=== PATIENT | female | born 1980 | race Caucasian/White ===

== ENCOUNTER 2022-04-14 08:42 | Emergency (ER) | payer OTHER, SELFPAY ==
[2022-04-14] VITALS (7 sets, daily range): BP systolic 173–189; BP diastolic 100–113; PULSE 35–72; RESP 12–18; TEMP 36.6–36.7; O2SAT 97–100; BMI 30.1
--- NOTE | 2022-04-14 09:30 | ED_ITS ---
HPI - Chest Pain General Time Seen by Provider: 09:29 Date Seen: 04/14/22 Chief Complaint: Chest Pain Stated Complaint: Chest Pain Time Seen by Provider: 04/14/22 08:58 History of Present Illness HPI narrative: This 41-year-old female comes in reporting left upper anterior chest discomfort just left of the sternum over the past 3 days. She states that this discomfort and pain is rather constant and can be reproduced at times with certain movements. She does not report any exercise intolerance. She does not have any nausea, vomiting, shortness of breath, or diaphoresis. She states that she feels lightheaded at times. She does not report any injury event or strenuous activity recently. She does have some cardiac risk factors including smoking and hypertension. Related Data Previous Rx's Medication Instructions Recorded ketorolac 10 mg tablet 10 mg PO TID 5 Days #15 tab 04/14/22 Allergies Allergy/AdvReac Type Severity Reaction Status Date / Time No Known Drug Allergies Allergy Verified 04/14/22 08:59 Review of Systems Status of ROS Reports: 10 or more systems reviewed and unremarkable except as noted in History and below Narrative Constitutional: No fevers, no weight gain or loss. Eyes: No discharge. No vision changes. HENT: No congestion, no sore throat, no ear pain. Cardiovascular: No palpitations. Chest discomfort as described above. Respiratory: No shortness of breath, no wheezes, no cough. Gastrointestinal: No abdominal pain, no vomiting, no diarrhea. Genitourinary: No dysuria, no hematuria. Musculoskeletal: Normal range of motion. Skin: No rashes, no pruritis. Neurological: No dizziness, weakness, sensory change, speech change. Endo/Heme/Allergies: No bruising or bleeding. No polydipsia. Pysch: no suicidality, no anxiety, no insomnia. All other systems reviewed and are negative. [facility] Surgical History History of delivery Social History Smoking Status: Current every day smoker What tobacco products do you use: cigarettes Smoking packs per day: 1 Smoking cigarettes per day: 20.0 Years smoked: 3 Smoking pack-years: 3.00 Do you use any of these nicotine containing products: None Second hand tobacco smoke exposure: Yes How often do you have a drink containing alcohol: 2-3 times a week How many standard drinks containing alcohol do you have on a typical day: 5 or 6 How often do you have six or more drinks on one occasion: Less than monthly AUDIT-C Alcohol total score: 6 Non-prescribed substance use: denies use service: No Exam Narrative Exam Narrative: Constitutional: Well-developed, well-nourished, no acute distress. HEENT: Normocephalic, atraumatic. Neck: Normal range of motion. Nontender. Supple. Heart: Regular. No murmurs. Normal rate. Intact distal pulses. Lungs: Clear to auscultation. No rhonchi, or rales. Abdomen: Normal bowel sounds. Nontender. No rebound tenderness. Genitalia: Deferred. Back: No midline tenderness. Normal range of motion. Extremities: Normal range of motion. No injury. Skin: Intact. No rash. Warm. No erythema or pallor. Neurologic: No altered sensation. No weakness. Alert and oriented. Psychiatric: No suicidality. No anxiety or depression. No insomnia. Nursing notes and vitals signs are reviewed. Const Vital Signs, click to edit/add: Vital Signs - 24 hr 04/14/22 09:00 04/14/22 09:25 Temperature 97.8 F Pulse Rate 71 Pulse Rate [Pulse Oximeter] 68 Respiratory Rate 18 Blood Pressure [Left Upper Arm] 174/109 H Pulse Oximetry 97 Course Vital Signs Vital signs: Initial Vital Signs Temperature 97.8 F 04/14/22 09:00 Temperature Source Temporal Artery Scan 04/14/22 09:00 Pulse Rate 68 04/14/22 09:00 Pulse Rhythm 04/14/22 09:00 Respiratory Rate 18 04/14/22 09:00 Blood Pressure 174/109 H 04/14/22 09:00 Blood Pressure Mean 130 04/14/22 09:00 Pulse Oximetry 97 04/14/22 09:00 Oxygen Delivery Method 04/14/22 09:00 Vital Signs Temperature 97.8 F 04/14/22 09:00 Pulse Rate 68 04/14/22 09:00 Respiratory Rate 18 04/14/22 09:00 Blood Pressure 174/109 H 04/14/22 09:00 Pulse Oximetry 97 04/14/22 09:00 Temperature 97.8 F 04/14/22 09:00 Pulse Rate 71 04/14/22 09:25 Respiratory Rate 18 04/14/22 09:00 Blood Pressure 174/109 H 04/14/22 09:00 Pulse Oximetry 97 04/14/22 09:00 MDM - Chest Pain MDM Narrative Medical decision making narrative: This patient comes in reporting left upper anterior chest pain and some pain also at the same level in her back. This is been present for the past few days and seems rather constant. She does not report any injury event or strenuous activity. EKG shows normal sinus rhythm without sign of ST or T-wave abnormality. This patient does have a few cardiac risk factors. Labs were drawn and returned with normal results. In particular her troponin is not detected. I did use bedside ultrasound to do screening views of her heart and lungs which also are showing normal findings. This was all reassuring to the patient. Most likely her symptoms are musculoskeletal or perhaps some nerve impingement. She received a prescription for Toradol. Lab Data Labs: Lab Results 04/14/22 04/14/22 Range/Units 09:45 09:45 WBC 9.52 (4.50-11.00) K/uL RBC 4.97 (4.00-5.20) m/uL Hgb 15.4 (12.0-16.0) gm/dL Hct 44.6 (33.0-51.0) % MCV 90 (80-100) fL MCH 31 (26-34) pg MCHC 35 (32-36) gm/dL RDW Coeff of Ni 12.3 (11.5-15.5) % Plt Count 288 (140-440) K/uL Neut % (Auto) 79.7 H (42.0-72.0) % Lymph % (Auto) 15.1 L (20-44) % [place] % (Auto) 3.8 (0.0-11.0) % Eos % (Auto) 0.9 (0.0-7.0) % Baso % (Auto) 0.3 (0.0-3.0) % Neut # (Auto) 7.60 H (1.7-7.0) K/uL Lymph # (Auto) 1.40 (0.90-2.90) K/uL [place] # (Auto) 0.40 (0.00-0.90) K/UL Eos # (Auto) 0.09 (0.00-0.50) K/uL Baso # (Auto) 0.03 (0.00-0.30) K/uL Abs Immat Gran (auto) 0.02 (0.00-0.30) K/uL Sodium 137 (135-149) mmol/L Potassium 4.6 (3.6-5.1) mmol/L Chloride 107 (96-114) mmol/L Carbon Dioxide 25 (20-32) mmol/L BUN 13 (5-24) mg/dL Creatinine 0.7 (0.5-1.5) mg/dL Estimated Creat Clear 88.37 Glucose 99 (60-115) mg/dL Calcium 8.8 (8.4-10.6) mg/dL Troponin I < 0.01 L (0.01-0.04) ng/mL ECG Data Attestation: I personally reviewed and interpreted this ECG as follows: ECG interpretation date: 04/14/22 ECG interpretation time: 09:31 Interpretation: Normal sinus rhythm. Rate is 74 beats per minute. There are no ST or T-wave abnormalities. Discharge Plan Discharge Clinical Impression: Acute chest wall pain Patient Disposition: Home, Self-Care Condition: Stable Instructions: Chest Wall Pain (ED) Additional Instructions: Chest wall pain. Take medication as needed and indicated. Activity as tolerated. Follow up with MD or return if worsening. Prescriptions: New ketorolac 10 mg tablet 10 mg PO TID 5 Days Qty: 15 0RF Follow Up/Referrals: Yelitza West PA-C [Primary Care Provider] - Stand Alone Forms: [facility] Info Instructions Procedures Ultrasound Other exam #1: Anatomical areas examined: Left lung, sternum, cardiac Indications: chest pain Exam type: focused emergency ultrasound Description/findings: Normal pleura, ribs, and cardiac function. Impression: Normal lung and cardiac screening exam
[2022-04-14 09:54] LABS: Basophils Absolute Auto 0.03 K/uL (0.00-0.30); Basophils Percent Auto 0.3 % (0.0-3.0); Eosinophils Absolute Auto 0.09 K/uL (0.00-0.50); Eosinophils Percent Auto 0.9 % (0.0-7.0); Hematocrit 44.6 % (33.0-51.0); Hemoglobin* 15.4 gm/dL (12.0-16.0); Immature Granulocytes Abs Auto 0.02 K/uL (0.00-0.30); Lymphocytes Percent Auto 15.1 % (20-44); Mean Corpuscular HGB Conc 35 gm/dL (32-36); Mean Corpuscular Hemoglobin 31 pg (26-34); Mean Corpuscular Volume 90 fL (80-100); Monocytes Percent Auto 3.8 % (0.0-11.0); Neutrophils Percent Auto 79.7 % (42.0-72.0); Platelet Count* 288 K/uL (140-440); RDW Coefficient of Variation % 12.3 % (11.5-15.5); Red Blood Count 4.97 m/uL (4.00-5.20); White Blood Count* 9.52 K/uL (4.50-11.00)
[2022-04-14 09:59] LABS: Slide Review Reflex No
[2022-04-14 10:04] LABS: Chloride* 107 mmol/L (96-114); Potassium* 4.6 mmol/L (3.6-5.1); Sodium* 137 mmol/L (135-149)
[2022-04-14 10:07] LABS: Blood Urea Nitrogen* 13 mg/dL (5-24); Carbon Dioxide* 25 mmol/L (20-32); Creatinine* 0.7 mg/dL (0.5-1.5); Est. Creatinine Clearance* 88.37; Estimated Glomerular Filt Rate 112.05
[2022-04-14 10:08] LABS: Calcium* 8.8 mg/dL (8.4-10.6); Glucose* 99 mg/dL (60-115)
[2022-04-14 10:57] LABS: Troponin I* < 0.01 ng/mL (0.01-0.04)
== END 2022-04-14 11:30 | disposition home or self-care (01) ==
PROVIDERS: Emergency Provider Emergency Medicine Emergency Medical Services; PCP Physician Assistant Medical
DX: R07.89 Other chest pain (principal)
CPT/HCPCS: 36415; 80048; 84484; 85025; 93005; 99285

== ENCOUNTER 2023-04-25 08:23 | Outpatient (CLI) | payer OTHER, SELFPAY | END 2023-04-25 08:24 | disposition home or self-care (01) | PROVIDERS: PCP Physician Assistant Medical; Visit Provider Family Medicine | DX: Z00.00 Encounter for general adult medical examination without abnormal findings (principal); I10 Essential (primary) hypertension; Z11.3 Encounter for screening for infections with a predominantly sexual mode of transmission; Z13.6 Encounter for screening for cardiovascular disorders; Z11.59 Encounter for screening for other viral diseases | CPT/HCPCS: 80053; 80061; 86592; 86701; 86702; 86703; 86803; 87536 ==

== ENCOUNTER 2023-06-20 08:43 | Outpatient (CLI) | payer OTHER, SELFPAY | END 2023-06-20 08:44 | disposition home or self-care (01) | LOC: FRMREF 08:44 | PROVIDERS: PCP Family Medicine; Visit Provider Family Medicine | DX: Z00.00 Encounter for general adult medical examination without abnormal findings (principal); I10 Essential (primary) hypertension | CPT/HCPCS: 80053 ==

== ENCOUNTER 2024-05-11 09:03 | Emergency (ER) | payer OTHER, SELFPAY ==
[2024-05-11 09:11] VITALS: BP 189/123; PULSE 67; RESP 16; TEMP 36.4; O2SAT 99; BMI 30.1
--- NOTE | 2024-05-11 09:41 | CRLHL7_ITS ---
For Patients: As a result of the Century Cures Act, medical imaging exams and procedure reports are released immediately into your electronic medical record. You may view this report before your referring provider. If you have questions, please contact your health care provider. INDICATION: COMPARISON: None TECHNIQUE: Walker-scale and color Doppler ultrasound of the uterus and ovaries from a transabdominal and transvaginal approach. Transvaginal ultrasound of the pelvis was performed to better visualize the genitourinary organs, such as the ovaries and/or endometrium. Color-flow and spectral Doppler imaging of both ovaries is performed. FINDINGS: The uterus measures 9.5 x 4.5 x 5.6 cm and demonstrates normal echogenicity. No uterine masses. The endometrial stripe measures 2.0 cm in double thickness. No discretely visualized endometrial masses. The cervix demonstrates multiple nabothian cysts, the largest of which measures 1.4 x 1.2 x 1.3 centimeters. The right ovary measures 2.4 x 1.3 x 2.0 cm. Physiologic appearance without a dominant cystic lesion or solid ovarian / adnexal mass. There is normal arterial and venous color Doppler flow and normal arterial and venous waveforms on duplex Doppler. The left ovary measures 4.7 x 3.1 x 3.3 cm and contains a simple appearing cyst that measures approximately 3.0 x 2.9 x 2.8 centimeters. Likely additional adjacent smaller peripheral follicles. There is normal arterial and venous color Doppler flow and normal arterial and venous waveforms on duplex Doppler. No free fluid. IMPRESSION: 1. The endometrium is enlarged measuring approximately 2.0 centimeters. Recommend consultation with gynecology for considering of endometrial tissue sampling. 2. Simple appearing left ovarian cyst measuring 3.0 centimeters. 3. Nabothian cysts in the cervix measuring up to 1.4 centimeters. Dictated by Chris Early MD @ 05/11/2024 10:45:22 AM (Electronically Signed)
[2024-05-11 10:01] LABS: Basophils Absolute Auto 0.04 K/uL (0.00-0.30); Basophils Percent Auto 0.5 % (0.0-3.0); Eosinophils Absolute Auto 0.15 K/uL (0.00-0.50); Hemoglobin* 13.7 gm/dL (12.0-16.0); Immature Granulocytes Abs Auto 0.01 K/uL (0.00-0.30); Immature Granulocytes Pct Auto 0.1 %; Lymphocytes Absolute Auto 1.63 K/uL (0.90-2.90); Mean Corpuscular HGB Conc 34 gm/dL (32-36); Mean Corpuscular Hemoglobin 31 pg (26-34); Mean Corpuscular Volume 91 fL (80-100); Monocytes Percent Auto 5.3 % (0.0-11.0); Neutrophils Absolute Auto 5.19 K/uL (1.7-7.0); Neutrophils Percent Auto 70.1 % (42.0-72.0); Platelet Count* 299 K/uL (140-440); RDW Coefficient of Variation % 12.2 % (11.5-15.5); Red Blood Count 4.42 m/uL (4.00-5.20); White Blood Count* 7.41 K/uL (4.50-11.00)
[2024-05-11 10:05] LABS: Slide Review Reflex No
[2024-05-11 10:19] LABS: Chloride* 107 mmol/L (96-114); Potassium* 3.9 mmol/L (3.6-5.1); Sodium* 138 mmol/L (135-149)
[2024-05-11 10:22] LABS: Anion Gap 6 mEq/L (7-15); Blood Urea Nitrogen* 17 mg/dL (5-24); Calcium* 9.1 mg/dL (8.4-10.6); Carbon Dioxide* 25 mmol/L (20-32); Creatinine* 0.8 mg/dL (0.5-1.5); Est. Creatinine Clearance* 75.78; Estimated Glomerular Filt Rate 94 ml/min; Glucose* 87 mg/dL (60-115)
--- NOTE | 2024-05-11 10:51 | ED.FEMALEGU ---
HPI - Female Genitourinary General Date Seen: 05/11/24 Chief complaint: Vaginal Bleeding Stated complaint: excessive menstrual bleeding Time Seen by Provider: 05/11/24 09:36 Source: patient Mode of arrival: ambulatory Limitations: no limitations History of Present Illness HPI Narrative: Out patient is a 43-year-old female presenting to the emergency department for vaginal bleeding. She states this has been going on for the past 2 weeks and has been getting worse. States for about the past 5 days she will go through 1 tampon per hour. She has also recently started using pads at the same time in both a tampon in the pad will become saturated. She is also having some associated lightheadedness and dizziness. States dizziness with feel like the room is spinning. Is not currently having any symptoms. She is unable to get in with her provider in [place] until mid June. Is passing some large sized clots. These clots are larger than a half dollar coin. Denies fevers, chills, chest pain, abdominal pain, vaginal discharge, dysuria, diarrhea, constipation, headache, vision changes. States her menstrual periods have been rather normal up until these past 2 weeks. No history of irregular vaginal bleeding before. Only previous OB related surgeries were 2 with most recent being 15 years ago. Related Data Home Medications ?Medication ?Instructions ?Recorded ?Confirmed epinephrine 0.3 mg/0.3 mL 0.3 mg IM ONCE PRN 06/20/23 05/11/24 injection, auto-injector (EpiPen) Previous Rx's ?Medication ?Instructions ?Recorded propranolol 10 mg tablet 10 mg PO TID PRN anxiety #90 tabs 04/25/23 cetirizine 10 mg tablet 10 mg PO QDAY PRN allergy symptoms 06/20/23 #90 tabs nicotine 10 mg inhalation 1 inh inhalation Q2-4H PRN 06/20/23 cartridge (Nicotrol) nicotine cravings #168 ea bupropion HCl 300 mg 24 hr tablet, 300 mg PO QAM #90 tabs 07/04/23 extended release (Wellbutrin XL) fluoxetine 10 mg capsule (Prozac) 10 mg PO QDAY #90 caps 10/08/23 losartan 50 mg tablet 50 mg PO QDAY #90 tabs 10/21/23 medroxyprogesterone 10 mg tablet See Rx Instructions .Route 05/11/24 (Provera) .COMPLEX #18 tabs Allergies Allergy/AdvReac Type Severity Reaction Status Date / Time venom-wasp protein Allergy Unknown swelling Verified 05/11/24 09:17 lisinopril AdvReac Mild Abdominal Verified 05/11/24 09:17 Pain PFSH PFSH Medical History (Updated 05/11/24 @ 11:25 by Rex Irene, DO) History of posttraumatic stress disorder (PTSD) ?Z86.59 - Personal history of other mental and behavioral disorders (ICD-10) Acute maxillary sinusitis ?J01.00 - Acute maxillary sinusitis, unspecified (ICD-10) Surgical History (Updated 04/20/23 @ 09:26 by Antonio Wheat) History of tubal ligation ?Z98.51 - Tubal ligation status (ICD-10) History of delivery ?Z98.891 - History of uterine scar from previous surgery (ICD-10) Family History (Updated 04/20/23 @ 09:29 by Antonio Wheat) Maternal Grandmother Colorectal cancer Stroke Father Diabetes High blood pressure Uncle Heart disease Mother High blood pressure Sister High blood pressure Family/Other High blood pressure Other Coronary artery disease Hyperlipidemia Social History (Updated 06/20/23 @ 13:35 by Radha Orozco ~ [facility]) What is your current living situation?: I presently have a place to live Problems where you live: no known problems In the past 12 months, utilities in danger of being shut off: no In past 12 months, lack of transportation kept you from medical appts, meetings, work, or getting things needed for daily living: no In the past 12 mos, have been you worried that your food would run out before you had money to buy more?: never true Smoking Status: Current every day smoker What tobacco products do you use: cigarettes Smoking packs per day: 1 Smoking cigarettes per day: 20.0 Years smoked: 3 Smoking pack-years: 3.00 Do you use any of these nicotine containing products: None Second hand tobacco smoke exposure: Yes How often do you have a drink containing alcohol: 2-3 times a week How many standard drinks containing alcohol do you have on a typical day: 5 or 6 How often do you have six or more drinks on one occasion: Less than monthly AUDIT-C Alcohol total score: 6 Non-prescribed substance use: denies use How often does anyone, including family, friends and others, physically hurt you: never How often does anyone, including family, friends and others, insult or talk down to you: never How often does anyone, including family, friends and others, threaten you with harm: never How often does anyone, including family, friends and others, scream or curse at you: never Little interest or pleasure in doing things: more than half the days Feeling down, depressed, or hopeless: more than half the days service: No Exam Const: Vital Signs, click to edit/add: Vital Signs - 24 hr 05/11/24 09:11 05/11/24 11:13 Temperature 97.6 F Pulse Rate [Pulse Oximeter] 67 56 L Respiratory Rate 16 18 Blood Pressure [Ri ght Upper Arm] 189/123 H 189/110 H Pulse Oximetry 99 98 Oxygen Delivery Me thod Room Air Room Air Course Vital Signs Vital signs: Initial Vital Signs Temperature 97.6 F 05/11/24 09:11 Temperature Source Temporal Artery Scan 05/11/24 09:11 Pulse Rate 67 05/11/24 09:11 Respiratory Rate 16 05/11/24 09:11 Blood Pressure 189/123 H 05/11/24 09:11 Blood Pressure Mean 145 H 05/11/24 09:11 Blood Pressure Position Sitting 05/11/24 09:11 Pulse Oximetry 99 05/11/24 09:11 Oxygen Delivery Method Room Air 05/11/24 09:11 Vital Signs Temperature 97.6 F 05/11/24 09:11 Pulse Rate 67 05/11/24 09:11 Respiratory Rate 16 05/11/24 09:11 Blood Pressure 189/123 H 05/11/24 09:11 Pulse Oximetry 99 05/11/24 09:11 Oxygen Delivery Method Room Air 05/11/24 09:11 Temperature 97.6 F 05/11/24 09:11 Pulse Rate 56 L 05/11/24 11:13 Respiratory Rate 18 05/11/24 11:13 Blood Pressure 189/110 H 05/11/24 11:13 Pulse Oximetry 98 05/11/24 11:13 Oxygen Delivery Method Room Air 05/11/24 11:13 MDM - Female Genitourinary MDM Narrative Medical decision making narrative: Patient is a 43-year-old female presenting to the emergency department for vaginal bleeding. It has been getting worse so I will do a pelvic exam and pelvic ultrasound. Will also order a CBC, BMP, urine test and urinalysis. Lab work shows no concerning findings. No signs of anemia or UTIs. test is negative. Pelvic exam does show a moderate amount of blood in the vaginal vault but I was unable to get a clear view of the cervical os. The pelvic ultrasound shows a 2 cm thickened endometrium and recommend gynecology consult. Simple cyst in the left ovary it with some nabothian on the cervix. I did speak to Dr. Valles about this and she recommend starting the patient on Provera and gave me the schedule for it. Also wants her to follow up within the next week for endometrial biopsy in their clinic. Patient is agreeable to this plan. Lab Data Labs: Lab Results 05/11/24 05/11/24 Range/Units 09:52 10:55 WBC 7.41 (4.50-11.00) K/uL RBC 4.42 (4.00-5.20) m/uL Hgb 13.7 (12.0-16.0) gm/dL Hct 40.0 (33.0-51.0) % MCV 91 (80-100) fL MCH 31 (26-34) pg MCHC 34 (32-36) gm/dL RDW Coeff of Ni 12.2 (11.5-15.5) % Plt Count 299 (140-440) K/uL Neut % (Auto) 70.1 (42.0-72.0) % Lymph % (Auto) 22.0 (20-44) % Martin % (Auto) 5.3 (0.0-11.0) % Eos % (Auto) 2.0 (0.0-7.0) % Baso % (Auto) 0.5 (0.0-3.0) % Neut # (Auto) 5.19 (1.7-7.0) K/uL Lymph # (Auto) 1.63 (0.90-2.90) K/uL Martin # (Auto) 0.40 (0.00-0.90) K/UL Eos # (Auto) 0.15 (0.00-0.50) K/uL Baso # (Auto) 0.04 (0.00-0.30) K/uL Abs Immat Gran (auto) 0.01 (0.00-0.30) K/uL Imm/Tot Granulo (auto) 0.1 % Sodium 138 (135-149) mmol/L Potassium 3.9 (3.6-5.1) mmol/L Chloride 107 (96-114) mmol/L Carbon Dioxide 25 (20-32) mmol/L Anion Gap 6 L (7-15) mEq/L BUN 17 (5-24) mg/dL Creatinine 0.8 (0.5-1.5) mg/dL Estimated Creat Clear 75.78 Estimated GFR 94 ml/min Glucose 87 (60-115) mg/dL Calcium 9.1 (8.4-10.6) mg/dL Urine Color Red A (Yellow) Urine Appearance Cloudy A (Clear) Urine pH 6.5 (5.0-8.5) Ur Specific [place] 1.020 (1.000-1.030) Urine Protein 1+ A (Negative) Urine Glucose (UA) Negative (Negative) Urine Ketones Negative (Negative) Urine Blood 3+ A (Negative) Urine Nitrite Negative (Negative) Urine Bilirubin Negative (Negative) Urine Urobilinogen 0.2 (0.2-1.0) Ur Leukocyte Esterase Negative (Negative) Urine RBC >100 A (0-2) Urine WBC 0-2 (0-5) Ur Squamous Epith Cells None (None-Few) Urine Bacteria None (None) Urine HCG, Qual Negative (Negative) Imaging Data Pelvic ultrasound: Attestation: I have reviewed the pertinent imaging results. Radiologist's impression: 1. The endometrium is enlarged measuring approximately 2.0 centimeters. Recommend consultation with gynecology for considering of endometrial tissue sampling. 2. Simple appearing left ovarian cyst measuring 3.0 centimeters. 3. Nabothian cysts in the cervix measuring up to 1.4 centimeters. Dictated by Chris Early MD @ 05/11/2024 10:45:22 AM Discharge Plan Discharge Clinical Impression: Dysfunctional uterine bleeding Patient Disposition: Home, Self-Care Condition: Stable Instructions: Abnormal (Dysfunctional) Uterine Bleeding (ED) Additional Instructions: Call the [facility] to schedule an appointment within the next week for endometrial sampling for your vaginal bleeding. I prescribed Provera which should help with the bleeding. Take this medication as prescribed. Prescriptions: New medroxyprogesterone [Provera] 10 mg tablet See Rx Instructions .ROUTE .COMPLEX Qty: 18 0RF Rx Instructions: 10 mg 3 times a day for 3 days followed by 10 mg twice a day for 3 days and then 10 mg daily for 3 days No Action propranolol 10 mg tablet 10 mg PO TID PRN (Reason: anxiety) Qty: 90 3RF epinephrine [EpiPen] 0.3 mg/0.3 mL auto-injector 0.3 mg IM ONCE PRN Rx Instructions: as a single dose; may repeat once Nicotrol 10 mg cartridge 1 inh inhalation Q2-4H PRN (Reason: nicotine cravings) Qty: 168 3RF cetirizine 10 mg tablet 10 mg PO QDAY PRN (Reason: allergy symptoms) Qty: 90 3RF bupropion HCl [Wellbutrin XL] 300 mg tablet extended release 24 hr 300 mg PO QAM Qty: 90 3RF fluoxetine [Prozac] 10 mg capsule 10 mg PO QDAY Qty: 90 3RF Rx Instructions: disp tab if cheaper losartan 50 mg tablet 50 mg PO QDAY Qty: 90 0RF Follow Up/Referrals: Gillian Ac MD [Primary Care Provider] - Stand Alone Forms: [facility] Info Instructions
[2024-05-11 11:01] LABS: Appearance Urine Cloudy (Clear); Bilirubin Urine Negative (Negative); Blood Urine 3+ (Negative); Color Urine Red (Yellow); Glucose Urine Negative (Negative); Ketones Urine Negative (Negative); Leukocyte Esterase Urine Negative (Negative); Nitrite Urine Negative (Negative); Protein Urine 1+ (Negative); Urobilinogen Urine 0.2 (0.2-1.0); pH Urine 6.5 (5.0-8.5)
[2024-05-11 11:04] LABS: Ur HCG Qualitative* Negative (Negative)
[2024-05-11 11:13] VITALS: BP 189/110; PULSE 56; RESP 18; O2SAT 98
[2024-05-11 11:17] LABS: RBC Urine >100 (0-2); WBC Urine 0-2 (0-5)
== END 2024-05-11 11:45 | disposition home or self-care (01) ==
PROVIDERS: Emergency Provider Student in an Organized Health Care Education/Training Program; PCP Family Medicine
DX: N93.9 Abnormal uterine and vaginal bleeding, unspecified (principal)
CPT/HCPCS: 36415; 76830; 76856; 80048; 81001; 81025; 85025; 99283

== ENCOUNTER 2024-06-23 09:50 | Outpatient (CLI) | payer OTHER, SELFPAY | END 2024-06-23 09:51 | disposition home or self-care (01) | PROVIDERS: PCP Family Medicine; Visit Provider Family Medicine | DX: Z00.00 Encounter for general adult medical examination without abnormal findings (principal); I10 Essential (primary) hypertension; R79.89 Other specified abnormal findings of blood chemistry; N92.0 Excessive and frequent menstruation with regular cycle; D58.2 Other hemoglobinopathies; Z13.6 Encounter for screening for cardiovascular disorders; Z13.1 Encounter for screening for diabetes mellitus | CPT/HCPCS: 80053; 80061; 81256; 82043; 82570; 83540; 83550 ==

== ENCOUNTER 2024-06-24 06:02 | Day surgery (SDC) | payer OTHER, SELFPAY ==
[2024-06-24] VITALS (11 sets, daily range): BP systolic 104–170; BP diastolic 67–100; PULSE 56–69; RESP 16–18; TEMP 36.1–36.5; O2SAT 97–100; BMI 30.6
[2024-06-24 06:28] LABS: Ur HCG Qualitative* Negative (Negative)
[2024-06-24] MEDS: LACTATED RINGERS 1000 ML 1,000 ML 100 ML IV (06:49)
[2024-06-24] MEDS: SODIUM CHLORIDE 0.9 % (FLUSH) 10 ML SYRINGE IVF ×2 (06:49→09:50)
--- NOTE | 2024-06-24 07:09 | W.PM.H&PU ---
History & Physical Update History & Physical Update H&P Reviewed and patient assessed: The following changes are noted below H&P Updates: High blood pressure on admission to Same Day Surgery this morning. Asymptomatic.
--- NOTE | 2024-06-24 07:09 | PM.PROC ---
Procedure Note Time Seen by Provider: 08:09 Date Seen: 06/24/24 Date of procedure: 06/24/24 Will [facility] bill your pro fee for this procedure?: Yes Procedure: Preoperative diagnosis: 43 yo with menorrhagia with secondary knee Mine in thickened endometrium on ultrasound. Postoperative diagnosis: Same. Procedure: Hysteroscopy, dilation and curettage, endometrial ablation. Anesthesia: Spinal and paracervical block. Surgeon: Venessa Valles Assist: None Estimated blood loss: 5 mL IV Fluid: 800 mL Urine output: 25 mL Specimen: Endometrial curettings, sent to path. Findings: On exam under anesthesia: The cervix and vagina appear normal. The uterus was anteflexed position, approximately 8 week size, mobile and without masses or nodularity palpable. Adnexa were without mass or fullness palpable bilaterally. On hysteroscopy: Normal-appearing endometrium and uterine canal. No other abnormalities noted. The uterus sounded to 9 cm. Cervical length 4.5 cm. Cavity length: 4.5. Procedure: Lia was taken to the operating room where spinal anesthetic was found to be adequate. She was placed in a dorsal lithotomy position and an exam under anesthesia was performed with the findings stated above. She was then prepped and draped in a normal sterile manner. An a bivalve is sterile speculum was placed in the vaginal canal. A paracervical block was placed using 0.5% Marcaine: 10 mL were injected at the 4 and 8 o'clock positions on the cervix. A single-toothed tenaculum was placed on the a posterior lip of the cervix. The cervix was then dilated to Hegar 6. Uterus sounded to 9 cm. The cervix measured 4.5 cm. There for the cavity length was 4.5 cm. The Truclear hysteroscope was advanced into the uterus. A diagnostic hysteroscopy performed with normal saline as the insufflation medium. Findings are stated above. The Truclear incisor was then advanced into the camera. And the curettage performed with this incisor. The curettage took approximately 1 min. Total amount of insufflation saline used: 685 mL. Deficit 40 mL. The cavity appeared normal once the curettage was performed completed. The hysteroscope was removed. The cervix was then dilated to Hegar 8. The Therese device was advanced into the uterus. The cavity check was completed and the ablation took place over 2 min. Patient received 30 mg of Toradol IV prior to the procedure. The Therese was removed, the hysteroscope readvanced to document ablation of the entire cavity. The hysteroscope was then removed. The single-tooth tenaculum was removed from the posterior lip of the cervix. Silver nitrate was used to obtain hemostasis. The patient tolerated this procedure well. Sponge, lap and instrument counts were correct x2 at the end of the procedure and the patient was taken to the recovery area in stable condition.
[2024-06-24] MEDS: BUPIVACAINE 0.5% 30 ML INJECTION (07:52)
[2024-06-24] MEDS: SILVER NITRATE APPLICATOR 1 EACH STICK..EA. TOPICAL (08:04)
--- NOTE | 2024-06-24 08:15 | W.ANESCHARGE ---
Anesthesia Charges Start Date/Time Anesthesia Start Date: 06/24/24 Anesthesia Start Time: 07:25 Stop Date/Time Anesthesia Stop Date: 06/24/24 Anesthesia Stop Time: 08:15
--- NOTE | 2024-06-24 08:17 | SUR.OPER ---
DEFICIT 40ML
--- NOTE | 2024-06-24 08:24 | W.ANESCHARGE ---
Anesthesia Charges Start Date/Time Anesthesia Start Date: 06/24/24 Anesthesia Start Time: 07:25 Stop Date/Time Anesthesia Stop Date: 06/24/24 Anesthesia Stop Time: 08:15
[2024-06-24] MEDS: ONDANSETRON 2 MG/ML inj 4 MG IVP (09:50)
== END 2024-06-24 10:01 | disposition home or self-care (01) ==
LOC: OR 06:04
PROVIDERS: PCP Family Medicine; Visit Provider Obstetrics & Gynecology
PROC: 0UF98ZZ Fragmentation in Uterus, Via Natural or Artificial Opening Endoscopic (ICD-10-PCS; CPT 58563; principal; 2024-06-24 07:15)
DX: N92.0 Excessive and frequent menstruation with regular cycle (principal); R93.89 Abnormal findings on diagnostic imaging of other specified body structures
CPT/HCPCS: 58563; 00952; 81025; 88305; A9270; C1782; J0665; J1885; J2405; J2704; J3010; J7120